=== PATIENT | male | born 1940 | race Caucasian/White ===

== ENCOUNTER 2020-04-23 07:38 | Observation (INO) ==
[2020-04-23] MEDS ORDERED: Ipratropium/Albuterol Neb 3 ML IH ONE (07:55)
[2020-04-23] MEDS ORDERED: methylPREDNISolone 125 MG/2 ML VIAL IVP ONE (07:55)
[2020-04-23 08:13] LABS: Basophils # 0.1 K/mcL (0.0-0.2); Basophils % 0.6 %; Eosinophils # 0.1 K/mcL (0.0-0.6); Eosinophils % 1.2 %; Hematocrit 36.8 % (37.5-50.1); Hemoglobin 13.3 g/dL (12.9-16.9); Lymphocytes # 1.4 K/mcL (0.6-4.6); Mean Corpuscular HGB Conc 36.1 g/dL (31.6-35.5); Mean Corpuscular Hemoglobin 30.2 pg (28.0-33.3); Mean Corpuscular Volume 83.6 fL (83.0-100.0); Monocytes # 0.9 K/mcL (0.0-1.3); Monocytes % 8.6 %; Platelet Count 151 K/mcL (140-400); Red Cell Distribution Width 14.1 % (11.5-14.5); Segmented Neutrophils % 70.6 %
[2020-04-23 08:33] LABS: BUN/Creatinine Ratio 11 (6-26); Blood Urea Nitrogen 9 mg/dL (8-23); Calcium 9.2 mg/dL (8.6-10.3); Carbon Dioxide 29 mEq/L (23-29); Chloride 82 mEq/L (98-107); Glucose 154 mg/dL (70-105); Osmolality,Calculated 252 (280-300); Potassium 3.1 mEq/L (3.5-5.1); Sodium 120 mEq/L (136-145); Troponin I < 0.03 ng/mL (< 0.04); eGFR For African Americans > 60 (> 60); eGFR For Non-African Americans > 60 (> 60)
[2020-04-23] MEDS ORDERED: 0.9 % Sodium Chloride 1,000 ML IVC ONE (08:35)
[2020-04-23] MEDS ORDERED: Potassium Effervescent 25 MEQ TABLET.EFF PO ONE (08:36)
[2020-04-23] MEDS ORDERED: Naloxone 0.4 MG/ML INJ IVP PRN (09:10)
[2020-04-23 09:43] LABS: Sodium, Urine 64.8 mEq/L
[2020-04-23] MEDS ORDERED: *HR* LORazepam 1 MG TABLET PO PRN (11:59)
[2020-04-23] MEDS ORDERED: Azithromycin 250 MG TABLET PO ONE (12:02)
[2020-04-23 12:06] LABS: Albumin 4.2 g/dL (3.5-5.7); Albumin/Globulin Ratio 1.6 (1.1-2.2); Bilirubin,Direct 0.2 mg/dL (0.0-0.2); Bilirubin,Indirect 0.6 mg/dL (0.0-1.0); Bilirubin,Total 0.8 mg/dL (0.3-1.0); Globulin 2.7 g/dL (2.4-3.5); Total Protein 6.9 g/dL (6.4-8.9)
[2020-04-23 12:08] LABS: Magnesium 1.4 mg/dL (1.6-2.6)
[2020-04-23] MEDS ORDERED: *HR* LORazepam 1 MG TABLET PO ONE (12:12)
[2020-04-23 12:21] LABS: Thyroid Stimulating Hormone 0.742 mcIU/mL (0.340-5.600)
[2020-04-23] MEDS ORDERED: Magnesium Oxide 400 MG TABLET PO ONE (12:55)
[2020-04-23] MEDS: *HR* Heparin 5,000 UNIT/ML VIAL SQ SCH ×2 (13:48→20:04)
[2020-04-23] MEDS: Ipratropium/Albuterol Neb 3 ML IH PRN ×2 (14:12→18:34)
[2020-04-23] MEDS: Budesonide/Formoterol 160/4.5 1 PUFF INH IH SCH ×2 (14:15→19:51)
[2020-04-23] MEDS ORDERED: Gabapentin 300 MG CAPSULE PO SCH (15:00)
[2020-04-23] MEDS ORDERED: Ringers Solution, Lactated 1,000 ML IVC ONE (15:35)
[2020-04-23] MEDS ORDERED: Ringers Solution, Lactated 1,000 ML ONE (15:42)
[2020-04-23] MEDS ORDERED: Melatonin 3 MG TABLET PO PRN (18:37)
[2020-04-23] MEDS ORDERED: Metoprolol 100 MG TABLET PO SCH (21:00)
[2020-04-24] MEDS: Albuterol 2.5 MG/3 ML NEBULIZER IH PRN ×2 (00:01→04:11)
[2020-04-24] MEDS: *HR* Heparin 5,000 UNIT/ML VIAL SQ SCH (06:09)
[2020-04-24 06:39] VITALS: BP 130/78
[2020-04-24 07:25] LABS: Hematocrit 35.9 % (37.5-50.1); Hemoglobin 12.9 g/dL (12.9-16.9); Mean Corpuscular HGB Conc 35.9 g/dL (31.6-35.5); Mean Corpuscular Hemoglobin 30.2 pg (28.0-33.3); Mean Corpuscular Volume 84.1 fL (83.0-100.0); Mean Platelet Volume 9.4 fL (9.4-12.4); Platelet Count 176 K/mcL (140-400); Red Blood Count 4.27 M/mcL (4.19-5.50); Red Cell Distribution Width 14.3 % (11.5-14.5); White Blood Count 12.5 K/mcL (4.3-11.1)
[2020-04-24] MEDS: Budesonide/Formoterol 160/4.5 1 PUFF INH IH SCH (07:27)
[2020-04-24 07:44] LABS: BUN/Creatinine Ratio 16 (6-26); Blood Urea Nitrogen 14 mg/dL (8-23); Calcium 9.2 mg/dL (8.6-10.3); Carbon Dioxide 26 mEq/L (23-29); Chloride 86 mEq/L (98-107); Glucose 212 mg/dL (70-105); Magnesium 1.8 mg/dL (1.6-2.6); Osmolality,Calculated 263 (280-300); Potassium 3.5 mEq/L (3.5-5.1); Sodium 123 mEq/L (136-145); eGFR For African Americans > 60 (> 60); eGFR For Non-African Americans > 60 (> 60)
[2020-04-24] MEDS ORDERED: Spironolactone 25 MG TABLET PO SCH (09:00)
[2020-04-24] MEDS ORDERED: Aspirin Enteric Coated 81 MG Tablet PO SCH (09:00)
[2020-04-24] MEDS ORDERED: Azithromycin 500 MG in 0.9 % Sodium Chloride 250 ML IVPB SCH (13:00)
== END 2020-04-24 08:14 | disposition left against medical advice (07) ==
LOC: EMEROOARM 07:38 → 2ANU 07:38 → SUATTDRO 09:29 → 2ANU 10:37
PROVIDERS: ADMIT Internal Medicine; ATTEND Family Medicine

== ENCOUNTER 2020-10-26 11:19 | Observation (INO) ==
[2020-10-26 11:55] LABS: Bilirubin,Urine Negative (Negative); Blood,Urine Negative (Negative); Clarity,Urine Clear (Clear); Color,Urine Yellow (Yellow); Glucose,Urine (UA) Normal (Normal); Ketones,Urine Negative (Negative); Leukocyte Esterase,Urine Negative (Negative); Nitrite,Urine Negative (Negative); Protein,Urine Trace mg/dL (Neg-Trace); Specific Gravity,Urine 1.018 (1.010-1.025); Urobilinogen,Urine Normal (Normal)
[2020-10-26 12:03] LABS: Basophils # 0.1 K/mcL (0.0-0.2); Basophils % 0.8 %; Hematocrit 40.4 % (37.5-50.1); Hemoglobin 13.8 g/dL (12.9-16.9); Immature Granulocytes % 4.4 % (0-4); Lymphocytes # 0.9 K/mcL (0.6-4.6); Lymphocytes % 8.4 %; Mean Corpuscular HGB Conc 34.2 g/dL (31.6-35.5); Mean Corpuscular Hemoglobin 27.7 pg (28.0-33.3); Mean Platelet Volume 9.3 fL (9.4-12.4); Monocytes % 9.1 %; Neutrophils # 8.2 K/mcL (1.6-8.9); Platelet Count 177 K/mcL (140-400); Red Blood Count 4.99 M/mcL (4.19-5.50); Red Cell Distribution Width 14.4 % (11.5-14.5); Segmented Neutrophils % 77.3 %; White Blood Count 10.6 K/mcL (4.3-11.1)
[2020-10-26] MEDS ORDERED: 0.9 % Sodium Chloride 500 ML IVC ONE (12:10)
[2020-10-26] MEDS ORDERED: Azithromycin 500 MG in 0.9 % Sodium Chloride 250 ML IVPB ONE (12:10)
[2020-10-26] MEDS ORDERED: cefTRIAXone 1,000 MG in Water for inj. (sterile) 10 ML IVP ONE (12:10)
[2020-10-26 12:38] LABS: BUN/Creatinine Ratio 23 (6-26); Blood Urea Nitrogen 21 mg/dL (8-23); Calcium 9.2 mg/dL (8.6-10.3); Carbon Dioxide 28 mEq/L (23-29); Chloride 83 mEq/L (98-107); Glucose 128 mg/dL (70-105); Osmolality,Calculated 257 (280-300); Potassium 3.4 mEq/L (3.5-5.1); Sodium 121 mEq/L (136-145); eGFR For African Americans > 60 (> 60); eGFR For Non-African Americans > 60 (> 60)
[2020-10-26 13:03] LABS: Magnesium 1.5 mg/dL (1.6-2.6)
[2020-10-26 14:47] LABS: Sodium, Urine 48.2 mEq/L
[2020-10-26 14:54] LABS: Procalcitonin 0.06 ng/mL (0.00-0.15)
[2020-10-26] MEDS ORDERED: Acetaminophen 325 MG TABLET PO PRN (15:05)
[2020-10-26] MEDS ORDERED: Ipratropium 1 PUFF INHALER IH PRN (15:10)
[2020-10-26] MEDS ORDERED: Naloxone 0.4 MG/ML INJ IVP PRN (15:15)
[2020-10-26 15:44] LABS: Thyroid Stimulating Hormone 0.615 mcIU/mL (0.340-5.600)
[2020-10-26 15:55] LABS: Folate 11.6 ng/mL (3.0-16.0)
[2020-10-26] MEDS: Gabapentin 300 MG CAPSULE PO SCH (22:43)
[2020-10-26] MEDS: Metoprolol 100 MG TABLET PO SCH (22:43)
[2020-10-27] MEDS ORDERED: Albuterol 2.5 MG/3 ML NEBULIZER IH PRN (00:45)
[2020-10-27 05:23] LABS: Basophils # 0.1 K/mcL (0.0-0.2); Basophils % 1.3 %; Eosinophils % 0.1 %; Hematocrit 40.2 % (37.5-50.1); Hemoglobin 13.7 g/dL (12.9-16.9); Immature Granulocytes % 6.6 % (0-4); Lymphocytes # 1.1 K/mcL (0.6-4.6); Lymphocytes % 11.5 %; Mean Corpuscular HGB Conc 34.1 g/dL (31.6-35.5); Mean Corpuscular Hemoglobin 27.6 pg (28.0-33.3); Mean Platelet Volume 9.1 fL (9.4-12.4); Neutrophils # 6.6 K/mcL (1.6-8.9); Platelet Count 184 K/mcL (140-400); Red Blood Count 4.96 M/mcL (4.19-5.50); Red Cell Distribution Width 14.5 % (11.5-14.5); Segmented Neutrophils % 69.5 %; White Blood Count 9.5 K/mcL (4.3-11.1)
[2020-10-27 05:27] LABS: Monocytes # 1.1 K/mcL (0.0-1.3)
[2020-10-27 05:35] LABS: Chol/HDL Ratio 3.2 (0-4.9); Magnesium 1.7 mg/dL (1.6-2.6); Phosphorous 2.7 mg/dL (2.7-4.5)
[2020-10-27 05:37] LABS: Alanine Aminotransferase 15 Units/L (7-52); Albumin 3.7 g/dL (3.5-5.7); Albumin/Globulin Ratio 1.4 (1.1-2.2); Alkaline Phosphatase 86 Units/L (34-104); Aspartate Amino Transferase 20 Units/L (13-39); BUN/Creatinine Ratio 23 (6-26); Bilirubin,Total 0.8 mg/dL (0.3-1.0); Blood Urea Nitrogen 18 mg/dL (8-23); Calcium 8.7 mg/dL (8.6-10.3); Carbon Dioxide 27 mEq/L (23-29); Chloride 89 mEq/L (98-107); Globulin 2.7 g/dL (2.4-3.5); Glucose 120 mg/dL (70-105); Lactate Dehydrogenase 247 Units/L (140-271); Osmolality,Calculated 265 (280-300); Sodium 126 mEq/L (136-145); Total Protein 6.4 g/dL (6.4-8.9); eGFR For African Americans > 60 (> 60); eGFR For Non-African Americans > 60 (> 60)
[2020-10-27 05:39] VITALS: BP 116/74
[2020-10-27 05:48] LABS: Platelet Estimate Normal (Normal)
[2020-10-27 05:53] LABS: Ferritin 245 ng/mL (20-250)
[2020-10-27] MEDS: Gabapentin 300 MG CAPSULE PO SCH (08:03)
[2020-10-27] MEDS: Metoprolol 100 MG TABLET PO SCH (08:03)
[2020-10-27 08:45] LABS: C-Reactive Protein 53 mg/L (Less than 10)
[2020-10-27] MEDS ORDERED: Apixaban 5 MG TABLET PO SCH (09:00)
[2020-10-27] MEDS ORDERED: Aspirin 81 MG TAB.CHEW PO SCH (09:00)
== END 2020-10-27 12:07 | disposition home or self-care (01) ==
LOC: EMEROOARM 11:19 → 2NENU 11:19 → SUATTDRO 20:46 → 2NENU 21:21
PROVIDERS: ADMIT Internal Medicine; ATTEND Internal Medicine